=== PATIENT | male | born 1980 | race Caucasian/White ===

== ENCOUNTER 2020-03-11 08:25 | Emergency (ER) | payer OTHER, SELFPAY ==
--- NOTE | 2020-03-11 08:36 | ED.GENADULT ---
HPI - General Adult General Chief complaint: Skin/Abscess/Foreign Body Stated complaint: Rash Time Seen by Provider: 03/11/20 08:36 Source: patient and RN notes reviewed Mode of arrival: ambulatory (carried) Limitations: no limitations History of Present Illness HPI narrative: 40-year-old male presents with complaints of diffused red raised, circular, varies sizes, itching rash after camping for the past 3 days. Edu says he first noticed several red, raised, itching areas to top of foot (believed to be Mosquito bites) and then started spreading throughout arms and legs. Symptoms increased over the last 24-48 hours. Hydrocortisone cream with no relief and Zyrtec with some relief. Denies other family members being affected. Drainage yesterday from one area on LT hand, none at this time. Denies new detergent, personal hygiene products or laundry detergents. No new foods or medications. No swelling, burning, or bleeding. Denies fever, chills, weakness, facial swelling, or tongue swelling. Denies dyspnea. Remains active. The patient reports he have not been diagnosed with COVID-19. The patient reports he is not waiting for the results of a COVID-19 lab test. The patient reports he do not have fever or weakness. The patient reports he do not have a new or worsening cough or shortness of breath. Denies chest pain. The patient reports he do not have any rhinorrhea, congestion, loss of taste, sore throat, nausea, vomiting, abdominal pain, and diarrhea. Tolerating po intake well. Denies recent traveling. Denies concerns for COVID-19 or exposures been home with limited outdoor exposure except for essential household needs, work, and return home. At this time, patient is not suspected of having COVID-19. Some parts of this dictation were generated by voice recognition software and may contain typographical and/or grammatical inaccuracies. Related Data Allergies Allergy/AdvReac Type Severity Reaction Status Date / Time No Known Allergies Allergy Mild Unverified 12/19/08 13:01 Review of Systems Review of Systems: Narrative: CONSTITUTIONAL: Denies fever, chills, sweats. EYES: Denies visual changes, redness, discharge. ENT: Denies rhinorrhea, congestion, sore throat, otalgia. CARDIOVASCULAR: Denies chest pain, palpitations, edema. RESPIRATORY: Denies dyspnea, wheezing, cough. GASTROINTESTINAL: Denies abdominal pain, nausea, vomiting, diarrhea. SKIN: Complaints of diffused red raised, circular, varies sizes, itching rash, drainage. MUSCULOSKELETAL: Denies acute back pain, joint pain, or myalgia. NEUROLOGIC: Denies numbness or focal weakness. PSYCHIATRIC: Denies anxiety or depression. All other systems reviewed are negative, except as documented in HPI and below. PMFSH Past Medical History Medical History (Updated 03/11/20 @ 08:51 by BETSY Mcmahon) Appendicitis Surgical History Surgical History (Updated 03/11/20 @ 08:46 by BETSY Mcmahon) Hx of appendectomy Family History Family History (Updated 03/11/20 @ 08:47 by BETSY Mcmahon) Father Alive and well Mother Alive and well Social History Social History (Updated 03/11/20 @ 08:47 by BETSY Mcmahon) Smoking packs per day: 0.5 Smoking cigarettes per day: 10.0 Years smoked: 25 Smoking pack-years: 12.50 Smoking status: Current every day smoker Tobacco type: cigarettes Second hand tobacco smoke exposure: Yes (spouse) Alcohol intake: current Substance use: never Living arrangements: with family Occupation/Education: occupation Gender identity (if verbalized by the patient): Male Sexual Orientation (if Verbalized by the Patient): Straight or Heterosexual Exam Narrative: Exam Narrative: GENERAL: This is a well-nourished, well-developed patient, in no apparent distress. Talks in full sentences and ambulates with steady gait without dyspnea. HEAD: normocephalic, atraumatic. EYES: PERR
[2020-03-11 08:40] VITALS: BP 138/93; PULSE 78; RESP 16; TEMP 37.1; O2SAT 99
== END 2020-03-11 08:58 | disposition home or self-care (01) ==
PROVIDERS: Emergency Provider Nurse Practitioner Family
DX: B88.0 Other acariasis (principal); F17.210 Nicotine dependence, cigarettes, uncomplicated
CPT/HCPCS: 99213; G0463